=== PATIENT | female | born 1965 | race Caucasian/White ===

== ENCOUNTER 2017-10-29 09:00 | Emergency (ER) | payer MEDICAID ==
[~2017-10-29] VITALS: Ht 157.5 cm; Wt 71.0 kg
[2017-10-29 12:16] LABS: BASOPHILS % 0.3 % (0.0-2.0); EOSINOPHILS % 2.6 % (0.0-5.0); HEMATOCRIT. 30.2 % (36.0-48.0); HEMOGLOBIN. 10.2 g/dL (12.0-16.0); MEAN CORPUSCULAR HEMOGLOBIN 28.6 pg (28.0-32.0); MEAN CORPUSCULAR VOLUME 84.7 fL (81.0-99.0); MEAN PLATELET VOLUME 7.7 fl (7.4-10.4); MONOCYTES % 8.9 % (2.0-8.0); NEUTROPHILS % 53.2 % (40.0-76.0); PLATELET 261 x1000/uL (130-400); RED BLOOD CELL COUNT 3.57 mill/uL (4.2-5.4); RED CELL DISTRIBUTION WIDTH 24.8 % (11.6-14.6)
[2017-10-29 12:20] LABS: CHLORIDE 106 mEq/L (98-107)
[2017-10-29 12:30] LABS: HCG SCREEN NEGATIVE
[2017-10-29 13:10] LABS: PLATELET ESTIMATE NORMAL
[2017-10-29 14:15] VITALS: BP 137/86
== END 2017-10-29 14:33 | disposition home or self-care (01) ==
LOC: ER 09:57
DX: N93.8 Other specified abnormal uterine and vaginal bleeding (principal); D25.9 Leiomyoma of uterus, unspecified; D64.9 Anemia, unspecified; Z98.890 Other specified postprocedural states
CPT/HCPCS: 36415; 76830; 76856; 80053; 84703; 85025; 86850; 86900; 86901; 99285; Z7610

== ENCOUNTER 2020-05-25 11:23 | Emergency (ER) | payer MEDICAID ==
[~2020-05-25] VITALS: Ht 154.9 cm; Wt 75.0 kg
[2020-05-25 14:06] LABS: HCG SCREEN NEGATIVE
[2020-05-25 14:08] LABS: CHLORIDE 108 mEq/L (98-107)
[2020-05-25 14:11] LABS: BASOPHILS % 0.4 % (0.0-2.0); EOSINOPHILS % 0.8 % (0.0-5.0); HEMATOCRIT. 37.9 % (36.0-48.0); HEMOGLOBIN. 13.1 g/dL (12.0-16.0); LYMPHOCYTES % 24.8 % (20.0-50.0); MEAN CORPUSCULAR HEMOGLOBIN 31.1 pg (28.0-32.0); MEAN CORPUSCULAR VOLUME 90.1 fL (81.0-99.0); MEAN PLATELET VOLUME 8.9 fl (7.4-10.4); MONOCYTES % 5.8 % (2.0-8.0); NEUTROPHILS % 68.2 % (40.0-76.0); PLATELET 197 x1000/uL (130-400); RED BLOOD CELL COUNT 4.21 mill/uL (4.2-5.4)
[2020-05-25 16:46] VITALS: BP 147/82
== END 2020-05-25 16:48 | disposition home or self-care (01) ==
LOC: ER 11:23
DX: D25.9 Leiomyoma of uterus, unspecified (principal); N93.9 Abnormal uterine and vaginal bleeding, unspecified; D64.9 Anemia, unspecified
CPT/HCPCS: 36415; 76830; 76856; 80053; 81025; 84703; 85025; 86850; 86900; 93005; 99285

== ENCOUNTER 2022-05-11 08:33 | Emergency (ER) | payer MEDICAID ==
[~2022-05-11] VITALS: Ht 160 cm; Wt 155.0 kg
[2022-05-11 08:59] VITALS: BP 171/88
[2022-05-11] MEDS ORDERED: CETI10CA11 MT (11:48)
[2022-05-11] MEDS ORDERED: TOPUD PO (11:49)
== END 2022-05-11 12:17 | disposition home or self-care (01) ==
LOC: ER 08:33
DX: H92.02 Otalgia, left ear (principal); I10 Essential (primary) hypertension; Z20.822 Contact with and (suspected) exposure to COVID-19
CPT/HCPCS: 81025; 87426; 99283; C9803